=== PATIENT | female | born 1945 ===

== ENCOUNTER 2016-09-24 11:21 | Emergency (ER) | payer BC ==
[2016-09-24 11:23] VITALS: RESP 18; TEMP 97.3
[2016-09-24] MEDS ORDERED: Bacitracin 500 Units/gm Oint Foilpak UD TOP ONE (11:53)
--- NOTE | 2016-09-24 11:53 | C.PDOC ---
History Of Present Illness 71 y/o female brought to ED by EMS after trip and fall while walking earlier today. Patient states she fell forward, breaking fall with her hands, and hitting her right knee on the ground. Patient denies any pain on arrival. Presents with small abrasion to right knee. Otherwise, denies head injury or trauma, new weakness, new numbness, or other associated symptoms. Time Seen by Provider: 09/24/16 11:27 Chief Complaint (Nursing): Lower Extremity Problem/Injury History Per: Patient History/Exam Limitations: no limitations Onset/Duration Of Symptoms: Days Current Symptoms Are (Timing): Still Present Recent travel outside of the [place] States: No Past Medical History Reviewed: Historical Data, Nursing Documentation, Vital Signs Vital Signs: Last Vital Signs Temp 97.3 F L 09/24/16 11:23 Pulse 75 09/24/16 12:04 Resp 18 09/24/16 12:04 BP 154/79 H 09/24/16 12:04 Pulse Ox 98 09/24/16 12:04 - Medical History PMH: No Chronic Diseases Family History: States: Unknown Family Hx - Social History Hx Alcohol Use: No Hx Substance Use: No - Immunization History Hx Tetanus Toxoid Vaccination: No Hx Influenza Vaccination: No Hx Pneumococcal Vaccination: No Review Of Systems Except As Marked, All Systems Reviewed And Found Negative. Constitutional: Negative for: Fever, Chills Musculoskeletal: Negative for: Shoulder Pain, Arm Pain, Hand Pain, Leg Pain Skin: Positive for: Other (right knee abrasion). Negative for: Rash, Bruising Neurological: Negative for: Weakness, Numbness Physical Exam - Physical Exam Appears: Non-toxic, No Acute Distress Skin: Warm, Dry Head: Atraumatic, Normacephalic Neck: Normal ROM, No Midline Cervical Tenderness, No Paracervical Tenderness, Supple Chest: Symmetrical, No Tenderness Cardiovascular: Rhythm Regular Respiratory: Normal Breath Sounds, No Rales, No Rhonchi, No Wheezing Gastrointestinal/Abdominal: Soft, No Tenderness Back: Normal Inspection, No Vertebral Tenderness, No Paraspinal Tenderness Extremity: Normal ROM, No Tenderness, Capillary Refill (< 2 sec. ), No Deformity , No Swelling, Other (very superficial abrasion right knee and bilateral palms) Extremity: Bilateral: Normal Color And Temperature Pulses: Left Radial: Normal, Right Radial: Normal Neurological/Psych: Oriented x3, Normal Speech, Normal Cognition, Normal Motor, Normal Sensation Gait: Steady ED Course And Treatment O2 Sat by Pulse Oximetry: 96 (RA) Pulse Ox Interpretation: Normal Medical Decision Making Medical Decision Making: Bacitracin applied to right knee. No indication for diagnostic testing at this time, as patient has no signs of swelling or pain, with steady gait and no difficulty on ambulation. Disposition - Disposition Referrals: [facility] [Outside] Disposition: HOME/ ROUTINE Disposition Time: 12:00 Condition: GOOD Additional Instructions: Follow up with the medical doctor within 1-2 days. Return if worsened Prescriptions: Ibuprofen [Motrin] 1 tab PO TID PRN #30 tab PRN Reason: Pain Instructions: Knee Sprain (ED), Abrasion (ED) Print Language: ANGOLAN - Clinical Impression Clinical Impression: Abrasion, Knee contusion - PA / [employer] [employer] / Resident Statement MD/DO has reviewed & agrees with the documentation as recorded. - Scribe Statement The provider has reviewed the documentation as recorded by the Scribelliott Montelongo All medical record entries made by the Bernaibelliott were at my direction and personally dictated by me. I have reviewed the chart and agree that the record accurately reflects my personal performance of the history, physical exam, medical decision making, and the department course for this patient. I have also personally directed, reviewed, and agree with the discharge instructions and disposition.
[2016-09-24 12:09] VITALS: BP 154/79; PULSE 75
[2016-09-24 21:24] VITALS: O2SAT 96
== END 2016-09-24 12:07 | disposition home or self-care (01) ==
LOC: C.ER 11:21
DX: S80.211A Abrasion, right knee, initial encounter (principal); S80.01XA Contusion of right knee, initial encounter; W01.0XXA Fall on same level from slipping, tripping and stumbling without subsequent striking against object, initial encounter; Y93.01 Activity, walking, marching and hiking; Y92.414 Local residential or business street as the place of occurrence of the external cause